=== PATIENT | female | born 1990 | race Caucasian/White ===

== ENCOUNTER 2017-09-30 22:24 | Emergency (ER) | payer SELFPAY ==
[~2017-09-30] VITALS: Ht 167.6 cm; Wt 81.7 kg
== END 2017-09-30 23:35 | disposition home or self-care (01) ==
LOC: ED 22:24
DX: L50.9 Urticaria, unspecified (principal); Z98.890 Other specified postprocedural states
CPT/HCPCS: 96374; 99284; J1200